=== PATIENT | male | born 2000 | race Caucasian/White ===

== ENCOUNTER 2024-08-04 16:48 | Emergency (ER) | payer OTHER ==
[~2024-08-04] VITALS: Ht 170.2 cm; Wt 73.5 kg
[2024-08-04 16:58] VITALS: BP 133/88; PULSE 81; RESP 18; TEMP 98; O2SAT 99
[2024-08-04] MEDS: KETOROLAC 30 MG/ML VIAL IM ONE (17:26)
[2024-08-04] MEDS ORDERED: ACET500T99 PO (20:06)
[2024-08-04] MEDS ORDERED: IBUP-2213 PO (20:06)
[2024-08-04 20:15] VITALS: BP 133/88; PULSE 81; RESP 18; TEMP 98; O2SAT 99
== END 2024-08-04 20:15 | disposition home or self-care (01) ==
LOC: MED 16:48
DX: S60.222A Contusion of left hand, initial encounter (principal); S60.221A Contusion of right hand, initial encounter; Z79.899 Other long term (current) drug therapy; W05.1XXA Fall from non-moving nonmotorized scooter, initial encounter; Y93.89 Activity, other specified; Y92.410 Unspecified street and highway as the place of occurrence of the external cause; Y99.8 Other external cause status
CPT/HCPCS: 73130; 96372; 99283; J1885